=== PATIENT | female | born 1955 | race African-American/Black ===

== ENCOUNTER 2020-07-16 06:01 | Inpatient (IN) | payer BC ==
[2020-07-10 10:22] LABS: Absolute Lymphocytes (CBC) 2.4 K/uL (0.7-4.9); Basophils % 0.8 % (0-1.3); Hematocrit 35.7 % (36.0-45.0); Lymphocytes % 40.2 % (15.3-44.8); MPV 8.5 fL (7.6-11.3); RBC Red Blood Cell Count 4.52 M/uL (3.86-4.86)
[2020-07-10 10:27] LABS: Protime INR 0.94
--- NOTE | 2020-07-10 10:28 | RAD REPORT ---
EXAM DESCRIPTION: RAD - Chest Pa And Lat (2 Views) - 07/10/2020 10:19 am CLINICAL HISTORY: preop Chest pain. COMPARISON: <Comparisons> FINDINGS: The lungs are clear. Moderate cardiomegaly. No displaced fractures. IMPRESSION: Moderate cardiomegaly.
[2020-07-10 10:41] LABS: BUN Blood Urea Nitrogen 18 mg/dL (7-18); Bicarbonate 31 mmol/L (21-32); Glucose Level 103 mg/dL (74-106); Potassium 3.1 mmol/L (3.5-5.1); Sodium Level 141 mmol/L (136-145)
[2020-07-16] MEDS ORDERED: NA CHLORIDE 0.9% 1,000 ML ONE ×2 (06:24→07:28)
[2020-07-16] MEDS ORDERED: CEFAZOLIN/SWI 2gm 2 GM/20 ML SYR ONE (06:24)
[2020-07-16] MEDS ORDERED: NS 0.9% VIAL 10 ML ONE ×2 (06:55→08:11)
[2020-07-16] MEDS ORDERED: LIDOCAINE 1% MPF 5 ML VIAL ONE (06:56)
[2020-07-16] MEDS ORDERED: dexAMETHasone 10 MG/ML VIAL ONE ×2 (06:56→07:51)
[2020-07-16] MEDS ORDERED: BUPIVACAINE 0.25% PF 30 ML VIAL ONE (06:57)
[2020-07-16] MEDS ORDERED: FENTANYL CITR 100 MCG/2 ML ONE (07:01)
[2020-07-16] MEDS ORDERED: MIDAZOLAM HCL 2 MG/2 ML INJ ONE (07:02)
[2020-07-16] MEDS ORDERED: KETOROLAC 30 MG/ML INJ ONE (07:51)
[2020-07-16] MEDS ORDERED: KETAMINE HCL 500 MG/5 ML VIAL ONE (07:51)
[2020-07-16] MEDS ORDERED: propofoL 200 MG/20 ML VIAL IV ONE (07:51)
[2020-07-16] MEDS ORDERED: LIDOCAINE 2% MPF 5 ML VIAL ONE (07:51)
[2020-07-16] MEDS ORDERED: HYDROMORPHONE HCL 2 MG/ML inj ONE (07:56)
[2020-07-16] MEDS ORDERED: TRANEXAMIC ACID 1,000 MG in NA CHLORIDE 0.9% 50 ML IV SCH (08:00)
[2020-07-16] MEDS ORDERED: ONDANSETRON 4 MG/2 ML VIAL ONE (08:10)
[2020-07-16] MEDS ORDERED: methocarbamoL 750 MG TAB PO PRN (10:26)
--- NOTE | 2020-07-16 10:26 | P.BOP ---
Preoperative diagnosis: right knee osteoarthritis Postoperative diagnosis: same Primary procedure: right total knee arthroplasty Staff Nurse Midwife: NONE,NONE Estimated blood loss: 20 cc Specimen: right knee bone remnants Findings: see dictation Anesthesia: General Complications: None Drain(s): Urinary catheter Implants: Biomet Angel Persona 8 STD CR femur, E tibia, 32 patella, 10 mm CR poly Fluids & blood products: per anesthesia record Transferred to: Recovery Room Condition: Good
[2020-07-16] MEDS ORDERED: DOCUSATE NA 100 MG CAP PO PRN (10:29)
[2020-07-16] MEDS ORDERED: ONDANSETRON 4 MG/2 ML VIAL IV PRN (10:29)
[2020-07-16] MEDS ORDERED: TRAMADOL HCL 50 MG TAB PO PRN (10:35)
[2020-07-16 10:55] LABS: Hematocrit 33.6 % (36.0-45.0)
--- NOTE | 2020-07-16 11:09 | RAD REPORT ---
EXAM DESCRIPTION: RAD - Knee Right 2 View - 07/16/2020 10:50 am CLINICAL HISTORY: Post Op Pain and swelling COMPARISON: Knee Right 3 View dated 03/01/2020 FINDINGS: Right total knee arthroplasty has been performed. No unexpected postoperative finding. Mil d joint effusion. Midline skin alaina are noted. IMPRESSION: Status post right TKA.
[2020-07-16] MEDS: HYDROMORPHONE HCL 1 MG/ML INJ ONE ×2 (15:00→15:05)
[2020-07-16] MEDS ORDERED: MORPHINE 2 MG/ML SYR IV PRN (15:37)
[2020-07-16 17:42] VITALS: BMI 34.5
[2020-07-16] MEDS: CEFAZOLIN/SWI 2gm 2 GM/20 ML SYR IVP SCH (19:36)
[2020-07-16] MEDS: HYDROCODONE/APAP 7.5/325 MG TAB PO PRN (19:43)
[2020-07-16] MEDS: hydroCHLOROthiazide 25 MG TAB PO SCH (21:07)
[2020-07-16] MEDS: ATORVASTATIN 40 MG TAB PO SCH (21:08)
[2020-07-16] MEDS: lisinopriL 20 MG TAB PO SCH (21:08)
[2020-07-16] MEDS: carvediloL 25 MG TAB PO SCH (21:08)
--- NOTE | 2020-07-16 21:30 | P.OP ---
Preoperative diagnosis: right knee osteoarthritis Postoperative diagnosis: same Primary procedure: right total knee arthroplasty Anesthesia: General LMA Estimated blood loss: 20 cc Specimen: right knee bone remnants Findings: see dictation Operative Technique: Indication For Procedure: Citlaly is a 64 year-old female presenting to my clinic with signs, symptoms and x-ray findings consistent with a severe right knee osteoarthritis. I discussed with the patient at length risks and benefits associated with operative and nonoperative treatment. She had failed conserv ative treatment measures and had significant difficulties with ADLs secondary to his pain. We discussed operative treatment and elected to proceed with right total knee arthroplasty. She expressed understanding and elected to proceed with operative treatment. Description Of Procedure: After informed consent was obtained, the patient was identified in the preoperative holding area. The right lower extremity was marked. The patient was then taken to the PACU where she underwent a right lower extremity adductor canal block performed by Anesthesia. He was then taken to the operating room, transferred to the operating table in supine fashion, and placed under general anesthesia. His right lower extremity was then prepped and draped in usual sterile fashion. A time-out was initiated. The correct patient and procedure were confirmed and identified. The patient did receive her preoperative prophylactic antibiotics. The right lower extremity was then exsanguinated and tourniquet was inflated to 300 mmHg. Approximately 15 cm longitudinal incision was made centered over the anterior aspect of the right knee. Dissection was then taken to the extensor mechanism and a medial parapa tellar arthrotomy was performed. The patella was everted and dislocated laterally and the knee was flexed in the fat pad. Medial lateral meniscus and ACL were all excised exposing the distal femur. Excess hypertrophic synovium was also excised within the suprapatellar pouch. The patient had an MRI of her right knee preoperatively for surgical planning and creation of cutting blocks. The cutting block was then placed over the distal femur and pins were then placed. The distal femoral cutting block was then placed over the pins. Knee joint was then used to ensure proper depth cut and the distal femur was then cut. The chamfer cutting guide was then placed over the distal end of the femur. Anterior, posterior cuts as well as anterior and posterior chamfer cuts were then made again confirming proper depth of the cut using an Donald wing. Excess bone remnants were then sent to pathology for further evaluation. Next, attention was taken to the proximal tibia. A tibial jig and tibial cutting block was then placed on proximal aspect of the right tibia and locked into position. Pins were then placed and alignment guide was then used to confirm proper alignment of the cut and then coronal and sagittal planes. Once this was confirmed, the cutting jig was placed over the pins and the proximal tibia was cut. Sizing trays were then selected and size 10 mm spacer was used and there was good overall balance in flexion and extension. Next, the trial implants were then placed using the size 8 standard CR femur and a size E tibia with an 10 mm poly. There was overall good range of motion and good stability trial implants were then removed. The wound was then irrigated thoroughly with normal saline and the knee was then injected with 30 cc of 0.25% Marcaine both in the p osterior capsule and mediallateral gutters as well as quadriceps tendon and periosteum. The tibia was then punched. The femur was drilled. The cement was then prepared on the back table. Cement was then placed first on the tibial surface followed by size E tibia. Excess cement was removed with Milton elevators. Size 8 standard CR femur was then placed on the distal femur after cement was placed on the distal femur. Excess cement was then removed and a size 10 mm trial poly was then placed. The knee was held in extension as the cement hardened. Undersurface of the patella was prepared debriding osteophytes using rongeurs as well as osteophytes had been debrided off the proximal tibia with rongeurs and osteotomes to aid with the medial tightness. Cement was placed on the undersurface of the patella after it was cut and a size 32 patella was placed. Once the cement was hardened, the knee was ranged, there was good overall stability both in flexion, extension and as well as stability with varus and valgus stresses. Trial poly was then removed and a size 10 mm CR poly was then placed and locked into position. The knee was then ranged again. There was good overall range of motion both for flexion and extension with good stability. The wound was then irrigated again thoroughly with normal saline using pulse lavage. Tourniquet was let down. Hemostasis was achieved using Bovie electrocautery. Extensor mechanism was then approximated using a #1 Vicryl bothin interrupted and running fashion. The fascia was then approximated using 0 Vicryl. Subcutaneous tissue was approximated with a 2-0 Vicryl. Skin was approximated using alaina. Sterile dressings were applied. The patient was awakened and transferred back to PACU in stable condition Complications: None Drain(s): Urinary catheter Implants: Biomet Angel Persona 8 STD CR femur, E tibia, 32 patella, 10 mm CR poly Fluids & blood products: per anesthesia record; TT: 89 mins @ 300 mmHg Transferred to: Recovery Room Condition: Good
[2020-07-17] MEDS: CEFAZOLIN/SWI 2gm 2 GM/20 ML SYR IVP SCH ×2 (00:34→12:36)
[2020-07-17] MEDS: HYDROCODONE/APAP 7.5/325 MG TAB PO PRN ×5 (04:05→21:14)
[2020-07-17 04:39] LABS: Hematocrit 32.8 % (36.0-45.0)
[2020-07-17] MEDS: ENOXAPARIN 30 MG/0.3 ML SQ SCH ×3 (05:11→20:14)
[2020-07-17] MEDS: LEVOTHYROXINE SOD 0.1 MG TAB PO SCH (05:11)
[2020-07-17] MEDS: AMLODIPINE 10 MG TAB PO SCH (08:19)
[2020-07-17] MEDS: lisinopriL 20 MG TAB PO SCH ×2 (08:19→20:15)
[2020-07-17] MEDS: METFORMIN HCL 500 MG TAB PO SCH (08:20)
[2020-07-17] MEDS: PANTOPRAZOLE 40MG TABLET PO SCH (08:20)
[2020-07-17] MEDS: hydroCHLOROthiazide 25 MG TAB PO SCH ×2 (08:21→20:15)
[2020-07-17] MEDS: CELECOXIB 100 MG CAPSULE PO SCH (08:25)
[2020-07-17] MEDS: carvediloL 25 MG TAB PO SCH ×2 (08:26→20:15)
[2020-07-17] MEDS ORDERED: HOME MED 1 EA UNK (Omeprazole [Prilosec] 40 MG Capsule.Dr) PO SCH (09:00)
--- NOTE | 2020-07-17 18:25 | P.PN ---
Subjective Date of Service: 07/17/20 Chief Complaint: s/p right TKA Subjective: Ambulating, Improving, Working w/ PT pain controlled Physical Examination - Vital Signs Temperature: 98.1 F Blood Pressure: 117/57 Pulse: 55 Respirations: 16 Pulse Ox (%): 95 - Physical Exam General: Alert, In no apparent distress Musculoskeletal: Other (RLE: dressing c/d/i; no significant swelling; +EHL/FHL/GSC/TA; sensation grossly intact distally; BCR all digits) - Studies Laboratory Data (last 24 hrs) 07/17/20 04:13: Hgb 10.6 L, Hct 32.8 L Assessment And Plan - Plan Citlaly is a 64-year-old female status post right total knee arthroplasty postoperative day #1 -Continue with physical therapy; patient is weightbearing as tolerated in the right lower extremity -Continue with Lovenox for DVT prophylaxis; will be discharged on Xarelto -Continue home medication regimen for diabetes -DC [place] -Likely DC home tomorrow after morning physical therapy
[2020-07-17] MEDS: ATORVASTATIN 40 MG TAB PO SCH (20:15)
[2020-07-18] MEDS: HYDROCODONE/APAP 7.5/325 MG TAB PO PRN ×3 (01:18→09:36)
[2020-07-18] MEDS: LEVOTHYROXINE SOD 0.1 MG TAB PO SCH (05:26)
--- NOTE | 2020-07-18 07:30 | P.DS ---
Admission Date: 07/16/20 Discharge Date: 07/18/20 Disposition: DC HOME/HOME HEALTH CARE Discharge Condition: GOOD Reason for Admission: s/p right TKA Consultations: none Procedures: right total knee arthroplasty 07/16/2020 Brief History of Present Illness: Citlaly with PMHx of HTN, DM, hypothyroidism admitted to the floor postoperatively from right total knee arthroplasty in stable condition on 07/16/2020 Hospital Course: Patient was admitted to the floor postoperatively in stable condition. Her vital signs remained stable and physical therapy was consulted to aid with mobilization. She was given lovenox for DVT prophylaxis while in the hospital and was discharged with Xarelto to take once daily. She was discharged in stable condition on 07/18/2020. Vital Signs/Physical Exam: Temp Pulse Resp BP Pulse Ox 97.4 F 55 16 109/51 L 95 07/18/20 04:00 07/18/20 04:00 07/18/20 04:00 07/18/20 04:00 07/18/20 04:00 Laboratory Data at Discharge: WBC 6.00 K/uL (4.3-10.9) 07/10/20 09:52 Hgb 9.9 g/dL (12.0-15.0) L 07/18/20 05:27 Hct 32.8 % (36.0-45.0) L 07/17/20 04:13 Plt Count 263 K/uL (152-406) 07/10/20 09:52 PT 10.8 SECONDS (9.5-12.5) 07/10/20 09:52 INR 0.94 07/10/20 09:52 APTT 32.6 SECONDS (24.3-36.9) 07/10/20 09:52 Sodium 141 mmol/L (136-145) 07/10/20 09:52 Potassium 3.1 mmol/L (3.5-5.1) L 07/10/20 09:52 BUN 18 mg/dL (7-18) 07/10/20 09:52 Creatinine 0.70 mg/dL (0.55-1.3) 07/10/20 09:52 Glucose 103 mg/dL (74-106) 07/10/20 09:52 Home Medications: Amlodipine [Norvasc*] 10 mg PO DAILY 07/10/20 Ascorbic Acid [Vitamin C*] 500 mg PO DAILY 07/10/20 Atorvastatin Calcium [Lipitor*] 40 mg PO BEDTIME 07/10/20 Carvedilol [Coreg] 25 mg PO BID 07/10/20 Levothyroxine [Synthroid*] 100 mcg PO [id number] 07/10/20 Lisinopril [Zestril] 10 mg PO BID 07/10/20 Metformin HCl 500 mg PO DAILY 07/10/20 Omeprazole [Prilosec] 40 mg PO DAILY 07/10/20 Tramadol HCl [Ultram] 50 mg PO Q6HP PRN 07/10/20 hydroCHLOROthiazide [Hydrochlorothiazide] 25 mg PO BID 07/10/20 methocarbamoL [Methocarbamol] 750 mg PO BIDP PRN 07/10/20 Hydrocodone 7.5/APAP 325 [[place] 7.5/325 mg*] 1 tab PO Q4H PRN tab 07/18/20 Physician Discharge Instructions: keep dressing clean and dry; begin Xarelto July 19 in AM and take once daily; keep VIVIAN hose on for 2 weeks postop Diet: Regular Activity: Weight bearing as tolerated Followup: Evaristo Hanley MD [ACTIVE - CAN ADMIT] - 1-2 Weeks
[2020-07-18] MEDS: CELECOXIB 100 MG CAPSULE PO SCH (09:00)
[2020-07-18] MEDS: hydroCHLOROthiazide 25 MG TAB PO SCH (09:23)
[2020-07-18] MEDS: METFORMIN HCL 500 MG TAB PO SCH (09:23)
[2020-07-18] MEDS: lisinopriL 20 MG TAB PO SCH (09:25)
[2020-07-18] MEDS: ENOXAPARIN 30 MG/0.3 ML SQ SCH (09:25)
[2020-07-18] MEDS: PANTOPRAZOLE 40MG TABLET PO SCH (09:25)
[2020-07-18] MEDS: carvediloL 25 MG TAB PO SCH (09:25)
[2020-07-18] MEDS: AMLODIPINE 10 MG TAB PO SCH (09:36)
[2020-07-18 13:10] VITALS: O2SAT 96
[2020-07-18 14:16] VITALS: BP 110/54; TEMP 97.4
== END 2020-07-18 13:28 | disposition home health service (06) | DRG 470 ==
LOC: OR 06:01 → 2ND 15:10
PROVIDERS: ADMIT Orthopaedic Surgery Sports Medicine; ATTEND Orthopaedic Surgery Sports Medicine
PROC: 0SRC069 Replacement of Right Knee Joint with Oxidized Zirconium on Polyethylene Synthetic Substitute, Cemented, Open Approach (ICD-10-PCS; principal; 2020-07-16 07:30)
DX: M17.11 Unilateral primary osteoarthritis, right knee (principal); E03.9 Hypothyroidism, unspecified; I10 Essential (primary) hypertension; E10.9 Type 1 diabetes mellitus without complications; M72.2 Plantar fascial fibromatosis
CPT/HCPCS: 36415; 71046; 80048; 82947; 85014; 85018; 85025; 85610; 85730; 88304; 88311; 93005; 94010; 97110; 97116; 97139; 97161; 97530; J0690; J1100; J1170; J1650; J2250; J2405; J2704; J3010; J7030; U0002

== ENCOUNTER 2024-01-19 15:46 | Emergency (ER) | payer MEDICARE ==
--- NOTE | 2024-01-19 17:22 | EDPHYS ---
Physician Documentation [facility] Name: Citlaly Chapa Age: 68 yrs Sex: Female : 1955 Arrival Date: 01/19/2024 Time: 15:46 Bed DX3 Private MD: ED Physician Dominik Yates HPI: 01/18 17:17 This 68 yrs old Black Female presents to ER via Ambulatory with complaints of Leg sp3 Swelling - left, Leg Pain - Left. 17:17 68-year-old female with history of diabetes, hypertension, hyperlipidemia, recent left sp3 knee surgery who is undergoing rehab is sent by the rehab therapist for mild left calf pain that she discovered during treatment. Patient denies significant pain, swelling or erythema/rash. No break in the skin noted area is not anywhere near the surgical site. Patient denies fever, chest pain, shortness of breath, prior DVT or PE, prolonged immobilization, or any other signs or symptoms on ROS at this time.. Historical: - Allergies: 16:09 Duloxetine; ko1 16:09 Lyrica; ko1 - PMHx: 16:09 Diabetes mellitus; Hypertensive disorder; Hypothyroidism; Arthritis; ko1 Hypercholesterolemia; - PSHx: 16:09 Operative procedure on knee; partial hysterectomy; ko1 - Immunization history:: Adult Immunizations up to date. - Infectious Disease History:: Denies. - Social history:: Smoking status: Patient denies any tobacco usage or history of. ROS: 17:19 Constitutional: Negative for fever, chills, and weight loss, Eyes: Negative for injury, sp3 pain, redness, and discharge, Neck: Negative for injury, pain, and swelling, Cardiovascular: Negative for chest pain, palpitations, and edema, Respiratory: Negative for shortness of breath, cough, wheezing, and pleuritic chest pain, Abdomen/GI: Negative for abdominal pain, nausea, vomiting, diarrhea, and constipation, Back: Negative for injury and pain, Skin: Negative for injury, rash, and discoloration, Neuro: Negative for headache, weakness, numbness, tingling, and seizure, Psych: Negative for depression, anxiety, suicide ideation, homicidal ideation, and hallucinations, Allergy/Immunology: Negative for hives, rash, and allergies, Endocrine: Negative for neck swelling, polydipsia, polyuria, polyphagia, and marked weight changes, Hematologic/Lymphatic: Negative for swollen nodes, abnormal bleeding, and unusual bruising, 17:19 All other systems are negative, Exam: 17:19 Constitutional: This is a well developed, well nourished patient who is awake, alert, sp3 and in no acute distress. Head/Face: Normocephalic, atraumatic. Chest/axilla: Normal chest wall appearance and motion. Nontender with no deformity. No lesions are appreciated. Cardiovascular: Regular rate and rhythm with a normal S1 and S2. No gallops, murmurs, or rubs. Normal PMI, no JVD. No pulse deficits. Respiratory: Lungs have equal breath sounds bilaterally, clear to auscultation and percussion. No rales, rhonchi or wheezes noted. No increased work of breathing, no retractions or nasal flaring. Abdomen/GI: Soft, non-tender, with normal bowel sounds. No distension or tympany. No guarding or rebound. No evidence of tenderness throughout. Skin: Warm, dry with normal turgor. Normal color with no rashes, no lesions, and no evidence of cellulitis. Neuro: Awake and alert, GCS 15, oriented to person, place, time, and situation. Cranial nerves II-XII grossly intact. Motor strength 5/5 in all extremities. Sensory grossly intact. Cerebellar exam normal. Normal gait. Psych: Awake, alert, with orientation to person, place and time. Behavior, mood, and affect are within normal limits. 17:19 Musculoskeletal/extremity: Mild pain to the left calf however no significant swelling noted. Distal neurovascular exam is normal.. Vital Signs: 16:04 BP 136 / 69; Pulse 56; Resp 18; Temp 97.4; Pulse Ox 100% ; ko1 17:35 BP 126 / 87; Pulse 58; Resp 15; Pulse Ox 100% ; jl7 MDM: 16:14 Medical Screening Exam initiated sp3 17:20 Data reviewed: vital signs, nurses notes, radiologic studies. ED course: 68-year-old sp3 female sent for DVT scan secondary to calf pain on the left side postoperatively. DVT scan is negative by ultrasound and vital signs are normal. I am not suspecting PE, ACS, cellulitis or any other critical pathology. Will safely discharge patient home at this time.. 01/18 16:13 Order name: US Extremity Venous Unilateral Ltd sp3 Administered Medications: No medications were administered Disposition Summary: 01/19/24 17:21 Discharge Ordered Notes: Location: Home sp3 Condition: Stable sp3 Diagnosis - Calf pain sp3 Followup: sp3 - With: Private Physician - When: Upon discharge from the Emergency Department - Reason: Continuance of care Discharge Instructions: - Discharge Summary Sheet sp3 - Muscle Cramps and Spasms sp3 Forms: - Medication Reconciliation Form sp3 - Antibiotic Education sp3 - Prescription Opioid Use sp3 - Patient Portal Instructions sp3 - Leadership Thank You Letter sp3 Signatures: Dispatcher [employer] Dominik Mcadams MD MD sp3 Tracy Wong RN RN ko1
--- NOTE | 2024-01-19 17:22 | ER ---
Nurse's Notes [facility] Name: Citlaly Chapa Age: 68 yrs Sex: Female : 1955 Arrival Date: 01/19/2024 Time: 15:46 Bed DX3 Private MD: Diagnosis: Calf pain Presentation: 01/18 16:04 Chief complaint: Patient states: had left knee replacement on 12/22/23, just left PT and ko1 the therapist said the calf was warm and tender to touch. Coronavirus screen: At this time, the client does not indicate any symptoms associated with coronavirus-19. Ebola Screen: No symptoms or risks identified at this time. Initial Sepsis Screen: Does the patient meet any 2 criteria? No. Patient's initial sepsis screen is negative. Does the patient have a suspected source of infection? No. Patient's initial sepsis screen is negative. Risk Assessment: Do you want to hurt yourself or someone else? Patient reports no desire to harm self or others. Onset of symptoms was January 19, 2024. 16:04 Method Of Arrival: Ambulatory ko1 16:04 Acuity: ROJELIO 3 ko1 Triage Assessment: 16:09 General: Appears in no apparent distress. Behavior is calm, cooperative, appropriate ko1 for age. Pain: Complains of pain in left calf. Historical: - Allergies: 16:09 Duloxetine; ko1 16:09 Lyrica; ko1 - PMHx: 16:09 Diabetes mellitus; Hypertensive disorder; Hypothyroidism; Arthritis; ko1 Hypercholesterolemia; - PSHx: 16:09 Operative procedure on knee; partial hysterectomy; ko1 - Immunization history:: Adult Immunizations up to date. - Infectious Disease History:: Denies. - Social history:: Smoking status: Patient denies any tobacco usage or history of. Screenin:35 [facility] ED Fall Risk Assessment (Adult) History of falling in the last 3 months, jl7 including since admission No falls in past 3 months (0 pts) Confusion or Disorientation No (0 pts) Intoxicated or Sedated No (0 pts) Impaired Gait No (0 pts) Mobility Assist Device Used Yes (1 pt) Altered Elimination No (0 pt) Score/Fall Risk Level 0 - 2 = Low Risk Oriented to surroundings, Maintained a safe environment. Abuse screen: Denies threats or abuse. Denies injuries from another. Nutritional screening: No deficits noted. Tuberculosis screening: No symptoms or risk factors identified. Assessment: 17:35 Reassessment: Patient appears in no apparent distress at this time. No changes from jl7 previously documented assessment. Patient and/or family updated on plan of care and expected duration. Pain level reassessed. Patient is alert, oriented x 3, equal unlabored respirations, skin warm/dry/pink. Vital Signs: 16:04 BP 136 / 69; Pulse 56; Resp 18; Temp 97.4; Pulse Ox 100% ; ko1 17:35 BP 126 / 87; Pulse 58; Resp 15; Pulse Ox 100% ; jl7 ED Course: 15:49 Patient arrived in ED. im 15:54 Dominik Yates MD is Attending Physician. sp3 16:09 Triage completed. ko1 16:09 Arm band placed on right wrist. Patient placed in waiting room, Patient notified of ko1 wait time. 17:19 US Extremity Venous Unilateral Ltd In Process Unspecified. EDMS 17:35 Patient has correct armband on for positive identification. Provided Education on: jl7 discharge. 17:35 No provider procedures requiring assistance completed. Patient did not have IV access jl7 during this emergency room visit. Administered Medications: No medications were administered Medication: 17:35 VIS not applicable for this client. jl7 Outcome: 17:21 Discharge ordered by . sp3 17:35 Discharged to home ambulatory, jl7 17:35 Condition: stable 17:35 Discharge instructions given to patient, Instructed on discharge instructions, follow up and referral plans. Demonstrated understanding of instructions, follow-up care, 17:38 Patient left the ED. jl7 Signatures: Dispatcher [employer] EDMS Kg Mas RN RN jl7 Dominik Yates MD MD sp3 Tracy Wong RN RN ko1 Wanda Tuttle im
--- NOTE | 2024-01-19 17:34 | RAD REPORT ---
EXAMINATION: US LEFT LOWER EXTREMITY VENOUS DOPPLER CLINICAL INDICATION: [facility] MAIN LLE SWELLING Bed: Y TECHNIQUE: Complete bilateral duplex sonography of the LEFT lower extremity veins was performed. The examination included compression for vein patency, color Doppler imaging and flow augmentation in response to distal compression of the distal external iliac, common femoral, femoral, popliteal, tibi al, and great and small saphenous veins. COMPARISON: No prior exam. FINDINGS: Duplex sonography testing of the veins of the LEFT lower extremity was performed. Color flow imaging shows all veins to be compressible with [id number] color filling. Pulsatile and phasic flow is present within all lower extremity deep and superficial veins examined. IMPRESSION: No evidence of deep venous thrombosis.
[2024-01-19 23:36] VITALS: TEMP 97.4; O2SAT 100
[2024-01-19 23:38] VITALS: BP 126/87
== END 2024-01-19 17:38 | disposition home or self-care (01) ==
LOC: ER 15:46
DX: M79.662 Pain in left lower leg (principal)
CPT/HCPCS: 93971; 99282